=== PATIENT | female | born 1965 | race Caucasian/White ===

== ENCOUNTER 2018-12-31 11:13 | Emergency (ER) | payer SELFPAY ==
[~2018-12-31] VITALS: Ht 157.5 cm; Wt 58.5 kg
[2018-12-31 11:45] VITALS: Ht 157.5 cm; Wt 58.5 kg
[2018-12-31 12:43] LABS: CALCIUM 9.7 mg/dL (8.5-10.1); CARBON DIOXIDE 29.2 mmol/L (21-32); CHLORIDE SERUM 105 mmol/L (98-107); CREATININE SERUM 0.7 mg/dL (0.6-1.0); GFR1 > 60 mL/min; GLUCOSE SERUM 92 mg/dL (74-106); POTASSIUM SERUM 4.1 mmol/L (3.5-5.1); SODIUM SERUM 142 mmol/L (136-145)
[2018-12-31 12:47] LABS: BASOPHIL % 0.4 % (0-2); PLATELET COUNT 171 x10^3mcL (130-400); RED CELL DISTRIBUTION WIDTH 13.4 % (11.5-14.5)
[2018-12-31 12:56] LABS: ALBUMIN 3.9 g/dL (3.4-5.0); ALKALINE PHOSPHATASE 57 U/L (46-116); ALT/SGPT 30 U/L (14-59); AST/SGOT 25 U/L (15-37); BILIRUBIN TOTAL 0.6 mg/dL (0.20-1.00); LIPASE 92 IU/L (73-393); TOTAL PROTEIN, SERUM 7.3 g/dL (6.4-8.2)
[2018-12-31 16:39] VITALS: BP 132/79
== END 2018-12-31 16:39 | disposition home or self-care (01) ==
LOC: ED 11:13
PROVIDERS: Emergency Medicine
DX: R10.11 Right upper quadrant pain (principal); R11.0 Nausea; R39.15 Urgency of urination
CPT/HCPCS: 36415; Q0162